=== PATIENT | male | born 1975 | race Caucasian/White ===

== ENCOUNTER → 2021-05-04 | Outpatient (CLI) | payer OTHER ==
--- NOTE | 2021-05-04 19:25 | RAD ---
Left elbow 3 views: Reason for examination: Elbow pain. No acute fracture or dislocation is seen. The bone density is normal. No abnormal periosteal reaction is seen. Joint spaces appear to be maintained. No joint effusion is evident. IMPRESSION: No acute bony abnormality seen at the left elbow. Electronically signed by: Carol Medeiros MD (05/04/2021 7:23 PM) [id number]
== END ==
LOC: RAD 11:36
PROVIDERS: ATTEND Nurse Practitioner Family
DX: M25.522 Pain in left elbow (principal)
CPT/HCPCS: 73080